=== PATIENT | female | born 1995 | race African-American/Black ===

== ENCOUNTER 2024-10-22 13:34 | Outpatient (REF) | payer MEDICAID, SELFPAY ==
--- OUTSIDE RECORDS SUMMARY | 2023-12-06 10:11 | XMS_ITS | Encounter Summary ---
Author Organization [facility] Address [address] [place] [address] Care Team Providers Care Residential Care Facility Manager Name Role Phone Braxton Pires Primary Care Provide r Encounter Details Date Type Department Care Team (Late st Contact Info) Description 12/06/2023 10:11 AM EDT Hospital Encounter TH HISTORIC ENCOUNTERS EASTERN CONVERSION ONLY Amanda Khalil PA [address] [place] [phone] Social History Tobacco Use Types Packs/Day Years Used Date Smoking Tobacco: Former Smokeless Tobacco: Never Alcohol Use Standard Drinks/Week Comments Not Currently 0 (1 standard drink = 0.6 oz pur e alcohol) Housing Instability Answer Date Recorde d Are you worried that in the next 2 months you may not have stable housing? No 01/29/2024 Food Access & Nutrition Answer Date Rec orded Do you have access to a vari ety of food including fruits and vegetables? Yes 01/29/2024 Access to Healthcare Answer Date Record ed Within the last 3 months, ho w many times did you visit the emergency department for your medical care? 1 01/29/2024 Health Literacy Answer Date Recorded How often do you need to hav e someone help you when you read instructions, pamphlets, or other written material from your doctor or pharmacy? Never 01/29/2024 Caregiver: How often do you need to have someone help you when you read instructions, pamphlets, or other written material from your doctor or pharmacy? Not on file 01/29/2024 Financial Risk Answer Date Recorded How hard is it for you to pa y for the very basics like food, housing, medical care, and air conditioning / heating? Very hard 01/29/2024 Transportation Answer Date Recorded Has the lack of transportati on kept you from meetings, work, or from getting things needed for daily living? No Has the lack of transportati on kept you from medical appointments or from getting medications? No 01/29/2024 Social Isolation Answer Date Recorded How often do you feel lonely or isolated from th ose around you? Never 01/29/2024 Food Risk Answer Date Recorded Within the past 12 months we worried whether our food would run out before we got money to buy more. Never true 01/29/2024 Within the past 12 months th e food we bought just didn't last and we didn't have money to get more. Never true 01/29/2024 Dependent Care Answer Date Recorded Do you need help finding or paying for care for your loved ones. For example, child nurse or elderly care for an older adult? Patient declined 01/29/2024 Education Answer Date Recorded Do you think completing more education or training, like finishing a GED, going to college, or learning a trade, would be helpful for you? Yes 01/29/2024 Employment and Income Answer Date Recor ded During the last four weeks, have you been actively looking for work? No 01/29/2024 Living Situation Answer Date Recorded What is your living situation? 1 03/31/2023 Comments No Sex and Gender Information Value Date Recorded Sex Assigned at Not on file Legal Sex Female 9:53 PM EST Gender Identity Not on file Sexual Orientation Not on file documented as of this encounter Last Filed Vital Signs Vital Sign Reading Time Taken Comments Blood Pressure 124/70 12/06/2023 11:08 AM EDT Sitting Right arm Pulse 112 12/06/2023 11:08 AM EDT Temperature - - Respiratory Rate - - Oxygen Saturation - - Inhaled Oxygen Concentration - - Weight 92.1 kg (203 lb) 12/06/2023 11:0 8 AM EDT Height 163.8 cm (5' 4.5 ) 12/06/2023 11 :08 AM EDT Body Mass Index 34.31 12/06/2023 11:08 AM EDT documented in this encounter Progress Notes * ANKUSH Norman - 12/06/2023 10:30 AM EDT Images from the original note were not included. Progress Notes by Amanda Khalil PA-C at 12/06/2023 10:30 AM Author: Amanda Khalil PA-C Service: -- Author Type: Physician Software Asset Management Analyst Filed: 12/06/2023 12:25 PM Encounter Date: 12/06/2023 Status: Signed Telephone Surveyor: Amanda Khalil PA-C (Physician Software Asset Management Analyst) Cosigner: Sage Martinez MD at 12/06/2023 5:43 PM Dear Lizzette Plasencia CNM, Thank you very much for referring this patient for consultation. HPI: 28-year-old -[place] female who was referred to our hematology clinic by [employer]ONT SERVICES AGENT team for further management of anemia during . She is accompanied by her boyfriend. She is 30 weeks . Her due date is February 10. She is expecting her first baby girl. She has been on vitamins and since early November she was started on iron supplementation as well. She denies any clinical bleeding or black stools. No family history of anemia. No previous history ofanemia prior to . She reports fatigue and sporadic lightheadedness. She denies headache, changes in vision, shortnessof breath, chest pain, palpitations, abnormal cravings. ROS: GENERAL: + malaise, significant weight loss or fever NECK: No lumps, goiter, pain or significant neck swelling RESPIRATORY: No cough, wheezing or shortness of breath CARDIOVASCULAR: No chest pain, leg swelling or palpitations GI: No abdominal discomfort, blood in stools or black stools MUSCULOSKELETAL: No joint pain or swelling, back pain, or muscle pain. HEMATOLOGY/LYMPHOLOGY No prolonged bleeding, easy bruisability or swollen nodes Other Systems review is non contributory PAST MEDICAL HISTORY: Active Ambulatory Problems Diagnosis Date Noted ? No Active Ambulatory Problems Resolved Ambulatory Problems Diagnosis Date Noted ? No Resolved Ambulatory Problems Past Medical History: Diagnosis Date ? Seizures (HCC) PAST SURGICAL HISTORY: History reviewed. No pertinent surgical history. SOCIAL HISTORY: Social History Tobacco Use ? Smoking status: Former Types: Cigarettes Quit date: 06/2023 Years since quittin.4 ? Smokeless tobacco: Never Substance Use Topics ? Alcohol use: Not Currently Quit smoking tobacco and weed due to . Typically drinks alcohol once or twice a month but not currently due to . She lives with her mother and her sister. She is currently not working. FAMILY HISTORY: History reviewed. No pertinent family history. Denies family history of anemia. MEDICATIONS: Current Outpatient Medications: ? Iron Glycinate 29 MG CAPS, Take by mouth., Disp: , Rfl: ? [id number]-[id number] (PRE- PO), Take by mouth., Disp: , Rfl: ? progesterone (PROMETRIUM) capsule 200 mg, Take 1 capsule (200 mg total) by mouth every night at bedtime., Disp: , Rfl: You are allergic to the following Date Reviewed: 12/06/2023 No active allergies PHYSICAL EXAM: BP 124/70 (BP Location: Right arm) Pulse 112 Temp 98.3 ??F (36.8 ??C) (Temporal) Ht 5' 4.5 (1.638 m) Wt 92.1 kg (203 lb) SpO2 100% BMI 34.31 kg/m?? APPEARANCE: Alert and in no acute distress EYES: PERRL, conjunctiva pink and sclera are Normal without icterus ORAL CAVITY: No erythema or exudates NECK: Neck supple, no adenopathy, HEART: RRR with normal S1 and S2, no murmurs, no gallops, no JVD appreciated LUNG: clear to auscultation bilaterally LYMPH NODES: No palpable superficial adenopathy ABDOMEN: , Bowel sounds normoactive, no bruits, soft, non-tender, without organomegaly or palpable masses EXTREMITIES: Extremities warm and well perfused without clubbing, cyanosis, rash or edema NEURO: Oriented X 3, no focal weakness; sensation is normal LABS: Testing: Review of Lab results , interpreted Review of External Documentation Tests ordered - CBCd, Iron/TIBC, Ferritin ASSESSMENT SNOMED CT(R) 1. Anemia in ANEMIA OF PLAN: KONSTANTIN in : -New condition -Third trimester -Due date: 02/11/2024 (Girl!) -Labs consistent with anemia; obtain iron studies -On oral iron supplementation since early November -Because IV iron has been shown to improve Hb more rapidly than oral iron, we preferentially treat patients with IV iron in the second half of -Published evidence reports that intravenous iron is safe and effective in the second and third trimesters of . Intravenous iron is the preferred route when the anemia is severe in the second trimester or at any time in the third trimester when there is little expectation that adequate quantities of iron will be delivered to the fetus as iron requirements increase in each trimester. -If her Hgb remains low if low iron levels, she may benefit from iron infusion. I will call her with results and we/ll make a decision. -If anemia is responding to oral iron, she may continued with it -Follow up as needed -Follow up with industrial hire sales assistant team for further management of Amanda Khalil PA-C Cc: Braxton Muniz MD Sign: Amanda Khalil PA-C Hematology/Oncology [facility] [phone] documented in this encounter Plan of Treatment Not on file documented as of this encounter Visit Diagnoses Not on filedocumented in this encounter Care Teams Residential Care Facility Manager Relationship Specialty Start Date End Date Braxton Pires [address] [place] [address] PCP - General 11/24/23 documented as of this encounter
--- OUTSIDE RECORDS SUMMARY | 2023-12-06 10:30 | XMS_ITS | Encounter Summary ---
Author Organization [facility] Address [address] [place] [address] Care Team Providers Care Fountain Manager Name Role Phone Braxton Pires Primary Care Provide r Encounter Details Date Type Department Care Team (Late st Contact Info) Description 12/06/2023 10:30 AM EDT Hospital Encounter TH HISTORIC ENCOUNTERS EASTERN CONVERSION ONLY Amanda Khalil PA [address] [place] [phone] Social History Tobacco Use Types Packs/Day Years [...] for your loved ones. For example, child development associate teacher or elderly care for an older adult? [...] on file documented as of this encounter Plan of Treatment Not on file documented as of this encounter Visit Diagnoses Not on filedocumented in this encounter Care Teams Fountain Manager Relationship Specialty Start Date End Date Braxton Pires [address] [place], [place] PCP - General 11/24/23 documented as of this encounter
--- OUTSIDE RECORDS SUMMARY | 2024-10-22 08:45 | XMS_ITS | Encounter Summary ---
Author Organization [employer] Address [address] [facility] [address] [place] [address] Care Team Providers Care Betting Clerks Name Role Phone Braxton Pires MD Primary Care Prov ider Reason for Referral * Consultation (Routine) - Pending Review Specialty Diagnoses / Procedures Referred By Destiney beasley Referred To Contact Nutrition Diagnoses Weight gain Braxton Pires MD [address] [place] [phone] Phone: tel: fax: Referral ID Status Reason Start Date Expiration Date Visits Requested Visits Authorized [id number] Pending Review Specialty Services Required 10/22/2024 10/22/2025 1 1 Encounter Details Date Type Department Care Team ([facility] st Contact Info) Description 10/22/2024 8:45 AM EDT Telemedicine [facility] MED & PEDS [address] [place] [address] Braxton Pires MD [address] [place], [place] [phone] Weight gain (Primary Dx) Social History Tobacco Use Types Packs/Day Years Used Date Smoking Tobacco: Never Smokeless Tobacco: Never Alcohol Use Standard Drinks/Week Comments Never 0 (1 standard drink = 0.6 oz pur e alcohol) Depression Answer Date Recorded Patient Health Questionnaire-9 Score 0 10/22/2024 Patient Health Questionnaire-9 Score 0 10/22/2024 Last PHQ-9: Questionnaire Data Not on file 0 10/22/2024 Housing Stability Answer Date Recorded What is your housing situation today? I have leigha menchaca 08/23/[address] you li ve. Do you have problems with any of the following? None of the above 08/23/2023 Food Insecurity Answer Date Recorded Within the past 12 months, y ou worried that your food would run out before you got money to buy more: Never True 08/23/2023 Within the past 12 months,th e food you bought just didn't last and you didn't have enough money to get more: Never True Transportation Answer Date Recorded In the past 12 months, has l ack of transportation kept you from medical appts, meetings, work or from getting things needed for daily living? Yes, it has kept me from medical appointments or getting medications. 11/15/2023 Utilities Answer Date Recorded In the past 12 months, has t he electric, gas, oil or water company threatened to shut off services in your home? No 08/23/2023 Depression Answer Date Recorded Patient Health Questionnaire-2 Score 0 10/22/2024 Internet Access Answer Date Recorded Internet Access Q1 Yes 10/10/2023 Internet Access Q2 Not on file 10/10/2023 Comments No Sex and Gender Information Value Date Recorded Sex Assigned at Female 06/24/2023 2:07 PM EDT Legal Sex Female 2:07 PM EDT Gender Identity Female 08/22/2023 10:40 AM EDT Sexual Orientation Don't know 08/22/2023 10 :40 AM EDT documented as of this encounter Functional Status * Over the past 2 weeks, how often have you been bothered by any of the following problems? Question Answer Date of Assessment Author Patient Health Questionnaire-2 Score 0 10/08 8:43 AM EDT Aileen Ramirez MA * Little interest or pleasure in doing things Answer Date of Assessment Author Not at all 10/22/2024 8:43 AM SUDHIRT Josefina Ramirez MA * Feeling down, depressed, or hopeless Answer Date of Assessment Author Not at all 10/22/2024 8:43 AM EDT Josefina aRmirez MA * Trouble falling or staying asleep, or sleeping too much Answer Date of Assessment Author Not at all 10/22/2024 8:43 AM Josefina Ricardo MA * Feeling tired or having little energy Answer Date of Assessment Author Not at all 10/22/2024 8:43 AM Josefina Ricardo MA * Poor appetite or overeating Answer Date of Assessment Author Not at all 10/22/2024 8:43 AM Josefina Ricardo MA * Feeling bad about yourself - or that you are a failure or have let yourself or your family down Answer Date of Assessment Author Not at all 10/22/2024 8:43 AM Josefina Ricardo MA * Trouble concentrating on things, such as reading the newspaper or watching television Answer Date of Assessment Author Not at all 10/22/2024 8:43 AM Josefina Ricardo MA * Moving or speaking so slowly that other people could have noticed? Or the opposite - being so fidgety or restless that you have been moving around a lot more than usual. Answer Date of Assessment Author Not at all 10/22/2024 8:43 AM Josefina Ricardo MA * Thoughts that you would be better off or hurting yourself in some way Answer Date of Assessment Author Not at all 10/22/2024 8:43 AM Josefina Ricardo MA * Patient Health Questionnaire-9 Score Answer Date of Assessment Author 0 10/22/2024 8:43 AM Josefina Ricardo MA documented as of this encounter Progress Notes * Braxton Garg MD - 10/22/2024 8:45 AM EDT Subjective Patient ID: Sergo Proctor is a 28 y.o. female who presents for No chief complaint on file.. HPI Patient was scheduled for a televisit to discuss weight management Review of Systems Constitutional: Negative for chills, fatigue and fever. Respiratory: Negative for cough and shortness of breath. Cardiovascular: Negative for chest pain and palpitations. Objective Physical Exam Neurological: General: No focal deficit present. Mental Status: She is oriented to person, place, and time. Psychiatric: Mood and Affect: Mood normal. Behavior: Behavior normal. Assessment/Plan Problem List Items Addressed This Visit Weight gain - Primary Patient has tried cutting calories, has been exercising, requesting medical device sales evaluation, will place referral and will order blood work to evaluate for possible secondary causes, follow up in 4 months Relevant Orders TSH W/Reflex to FT4 Hemoglobin A1c Comprehensive Metabolic Panel Referral to Nutrition Services documented in this encounter Miscellaneous Notes * Assessment & Plan Note - Braxton Garg MD - 10/22/2024 9:15 AM EDTAssociated Problem(s): Weight gain Patient has tried cutting calories, has been exercising, requesting medical device sales evaluation, will place referral and will order blood work to evaluate for possible secondary causes, follow up in 4 months documented in this encounter Plan of Treatment Upcoming Encounters Date Type Department Care Team (Late st Contact Info) Description 11/23/2024 2:30 PM EDT Clinical Support [facility] DIABETES/NUTRITION [address] [place] [address] [place] [address] Scheduled Referrals Name Type Priority Associated Diagnoses Orde r Schedule Referral to Nutrition Services Outpatient Referral Routine Weight gain Expected: 10/22/2024 (Approximate), Expires: 10/22/2025 documented as of this encounter Procedures Procedure Name Priority Date/Time Associated Diagnosis Comments TSH W/REFLEX TO FT4 Routine 10/22/2024 1 :38 PM EDT Weight gain HEMOGLOBIN A1C Routine 10/22/2024 1:38 PM EDT Weight gain COMPREHENSIVE METABOLIC PANEL Routine 10/22/2024 1:38 PM EDT Weight gain documented in this encounter Results * (ABNORMAL) Comprehensive Metabolic Panel (10/22/2024 1:38 PM EDT) Sodium 142 135 - 145 mmol/L [facility] Potassium 3.7 3.3 - 5.1 mmol/L [facility] Chloride 108 96 - 108 mmol/L [facility] Carbon Dioxide 27 22 - 29 mmol/L [facility] Anion Gap 11(L) 12 - 20 [facility] Urea Nitrogen (BUN) 10 9 - 16 mg/dL [facility] Creatinine, Serum 0.65 0.5 - 1.4 mg/dL [facility] Estimated Glomerular Filt Rate >60 [facility] Comment:Chronic Kidney Disea se: Estimated GFR < 60 mL/min/[id number] Kidney Disease: Estimated GFR < 15 mL/min/1.73m2 Glucose 72 60 - 115 mg/dL [facility] Calcium 8.9 8.4 - 10.2 mg/dL [facility] Bilirubin, Total 0.2 0.0 - 1.0 mg/dL [facility] Aspartate Amino Transferase 21 5 - 31 U/L [facility] Alanine Aminotransferase 16 0 - 31 U/L [facility] Total Protein 7.4 6.5 - 8.0 g/dL [facility] Albumin Level 4.4 3.5 - 5.0 g/dL [facility] Alkaline Phosphatase 69 39 - 117 U/L [facility] Blood Venous blood specimen / Unknown 10/22/2024 1:38 PM EDT 10/22/2024 2:00 PM EDT us Braxton Garg MD LAB BLOOD ORDERABL ES Final Result [facility] [address] [place] [phone] * Hemoglobin A1c (10/22/2024 1:38 PM EDT) Hemoglobin A1c 5.6 <6.0 % [facility] Comment:Hemoglobin A1C Refer ence Range Adults: 4.8 - 6.0 % Non diabetic: < 6.0 % Goal: < 7.0 %Additional Action Suggested: > 8.0 %Note: Hemoglobin A1c results are invalid for patients with abnormal amounts of HbF. Blood transfusions may impact the HbA1c concentration in the patient sample. Estimated Average Glucose 114 mg/dL [facility] Comment:eAG = Estimated ave rage glucose which is %A1C expressed asaverage glucose, using the formula of the [id number]-[id number] Glucose study (ADAG), Diabetes Care, Vol.31,#8,Sep. 2007 Blood Venous blood specimen / Unknown 10/22/2024 1:38 PM EDT 10/22/2024 2:00 PM EDT us Braxton Garg MD LAB BLOOD ORDERABL ES Final Result Performing Organization Address [facility] Co de Phone Number [facility] [address] [place] [phone] * TSH W/Reflex to FT4 (10/22/2024 1:38 PM EDT) TSH reflex Free T4 1.41 0.32 - 4.0 uIU/mL [facility] Blood Venous blood specimen / Unknown 10/22/2024 1:38 PM EDT 10/22/2024 2:00 PM EDT us Braxton Garg MD LAB BLOOD ORDERABL ES Final Result Performing Organization Address [facility] Co de Phone Number [facility] [address] [place] [phone] documented in this encounter Visit Diagnoses Diagnosis Weight gain- Primary Other symptoms concerning nutrition, metabolism, and development documented in this encounter Additional Health Concerns Assessment Noted Time PHQ-9 Depression Total Score: 0 10/23/19 25 8:43 AM EDT documented as of this encounter Care Teams Betting Clerks Relationship Specialty Start Date End Date Braxton Pires MD [address] [place] [phone] PCP - General Internal Medicine 08/23/23 Jennie Otero Office Machine Servicer Apprentice 11/18/23 documented as of this encounter
[2024-10-22 14:34] LABS: Hemoglobin A1C 115.3574 umol/L; Total Hemoglobin (HGBA1C) 3083.8755 umol/L
[2024-10-22 14:55] LABS: Alanine Aminotransferase 16 U/L (0-31); Albumin Level 4.4 g/dL (3.5-5.0); Alkaline Phosphatase 69 U/L (39-117); Anion Gap 11 (12-20); Aspartate Amino Transferase 21 U/L (5-31); Blood Urea Nitrogen 10 mg/dL (9-16); Calcium 8.9 mg/dL (8.4-10.2); Carbon Dioxide 27 mmol/L (22-29); Chloride 108 mmol/L (96-108); Estimated Glomerular Filt Rate > 60; Potassium 3.7 mmol/L (3.3-5.1); Sodium 142 mmol/L (135-145); Total Protein 7.4 g/dL (6.5-8.0)
--- OUTSIDE RECORDS SUMMARY | 2024-10-22 18:51 | XMS_ITS | Encounter Summary ---
Author Organization [employer] Address [address] [place] [address] Care Team Providers Care Sterile Products Processor Name Role Phone Braxton Pires MD Primary Care Prov ider Encounter Details Date Type Department Care Team (Latest Contact Info) Description 10/22/2024 Travel Social History Tobacco Use Types Packs/Day Years [...] Health Questionnaire-2 Score 0 10/08 8:43 AM Aileen Ricardo MA * Little interest or pleasure in doing things Answer Date of Assessment Author Not at all 10/22/2024 8:43 AM Josefina Ricardo MA * Feeling down, depressed, or hopeless Answer Date of Assessment Author Not at all 10/22/2024 8:43 AM Josefina Ricardo MA * Trouble falling or staying asleep, [...] at all 10/22/2024 8:43 AM EDT Josefina Ramirez MA * Thoughts that you would be better off or hurting yourself in some way Answer Date of Assessment Author Not at all 10/22/2024 8:43 AM EDT Josefina Ramirez MA * Patient Health Questionnaire-9 Score Answer Date of Assessment Author 0 10/22/2024 8:43 AM EDT Josefina Ramirez MA documented as of this encounter Plan of Treatment Upcoming Encounters Date Type Department Care Team (Late st Contact Info) Description 11/23/2024 2:30 PM EDT Clinical Support [facility] DIABETES/NUTRITION [address] [place] [address] [place] [address] documented as of this encounter Visit Diagnoses Not on filedocumented in this encounter Additional Health Concerns Assessment Noted Time PHQ-9 Depression Total Score: 0 10/23/19 25 8:43 AM EDT documented as of this encounter Care Teams Sterile Products Processor Relationship Specialty Start Date End Date Braxton Pires MD [address] [place] [phone] PCP - General Internal Medicine 08/23/23 Jennie Otero Channel Rougher 11/18/23 documented as of this encounter
--- OUTSIDE RECORDS SUMMARY | 2024-10-22 18:51 | XMS_ITS | Clinical Summary ---
Author Organization [facility] Address [address] [place] [address] Care Team Providers Care Knifeman Name Role Phone Braxton Muniz MD Primary Care Provider [phone] Allergies No known active allergies Medications Medication Sig Dispensed Refills Start Date End Date Status progesterone (PROMETRIUM) capsule 200 mg Take 1 capsule (200 mg total) by mouth every night at bedtime. 0 Active Iron Glycinate 29 MG CAPS Take by mouth. 0 Active Migimkyv-Fgi-Cb-FA (PRE-MICHAEL PO) Take by mouth. 0 Active Social History Tobacco Use Types Packs/Day Years Used Date Smoking Tobacco: Former Cigarettes Q uit: 06/2023 Smokeless Tobacco: Never Alcohol Use Standard Drinks/Week Comments Not Currently 0 (1 standard drink = 0.6 oz pur e alcohol) Sex and Gender Information Value Date Recorded Sex Assigned at Not on file Gender Identity Not on file Sexual Orientation Not on file Job Start Date Occupation Industry Not on file Not on file Not on file Last Filed Vital Signs Vital Sign Reading Time Taken Comments Blood Pressure 124/70 12/06/2023 11:08 AM EDT Pulse 112 12/06/2023 11:08 AM EDT Temperature 36.8 C (98.3 F) 12/06/2023 11:08 AM EDT Respiratory Rate - - Oxygen Saturation 100% 12/06/2023 11:08 AM EDT Inhaled Oxygen Concentration - - Weight 92.1 kg (203 lb) 12/06/2023 11:08 AM EDT Height 163.8 cm (5' 4.5 ) 12/06/2023 11:08 AM ED T Body Mass Index 34.31 12/06/2023 11:08 AM EDT Plan of Treatment Health Maintenance Due Date Last Done Comments Hepatitis B Vaccines (1 of 3 - 3-dose series) 1994 Hepatitis C Screening 1994 COVID-19 Vaccine (#1) 05/22/1995 Depression Screening 2006 Preventative Health Evaluation 2012 Cervical Cancer Screening (P ap Smear) 11/21/2015 Influenza Vaccine (#1) 2024 DTap / Tdap / Td (2 - Td or Tdap) 11/23/2033 024 Pneumococcal Vaccine Aged Out No long er eligible based on patient's age to complete this topic RSV Ped < 20 months Aged Out No longe r eligible based on patient's age to complete this topic Guarantor Name Account Type Relation to Patient Date of Phone Billing Address Sergo Proctor Personal/Family Self 1995 [address] [place] [id number] Care Teams Knifeman Relationship Specialty Start Date End Date Braxton Muniz MD [address] [facility] [place] [phone] PCP - General Internal Medicine 11/24/23
--- OUTSIDE RECORDS SUMMARY | 2024-10-22 18:51 | XMS_ITS | Clinical Summary ---
Author Organization [employer] Address [address] [place] [address] Care Team Providers Care Fruit Harvester Name Role Phone Braxton Pires MD Primary Care Prov ider Allergies Active Allergy Reactions Criticality Noted Date Comments Latex Hives 08/23/2023 Medications * This document contains information received from the source organization and may not represent a complete record from that organization. Vit-Fe Fumarate-FA (WesTab Plus) 27-1 MG tablet Take 1 tablet by mouth Once per day. 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 Status post delivery at term 05/03/2024 Assessment & Plan (05/03/2024 3:34 PM EDT): Patient had a vaginal delivery on 01/29/24, no complications, she is , continue with vitamins, no sign/symptoms of depression Panic disorder 01/23/2024 Depression, unspecified 12/30/2023 Iron deficiency anemia secon minnie to inadequate dietary iron intake 12/22/2023 Assessment & Plan (05/03/2024 3:35 PM EDT): Last cbc done on 01/30/24 was stable, continue vitamin, no sign of fatigue, follow up as needed+ Assessment & Plan (12/22/2023 6:44 PM EST): Patient did not tolerated oral replacement, will start iv iron replacement Encounter for medical examination to establish c are 08/23/2023 Assessment & Plan (08/23/2023 2:18 PM EDT): Last pcp visit was on 2016 No er visit in the past year No hospitalizations Pmh:- Pshx: - All: latex Meds: vitamin Patient is 13 weeks , her first , followed by [facility] 32 weeks gestation of 08/23/2023 Assessment & Plan (12/22/2023 6:43 PM EST): Followed by [facility], no complications during , will follow up in 3-4 months Assessment & Plan (08/23/2023 2:19 PM EDT): No complications so far, on multivitamin, followed by [facility] Encounters * This document contains information received from the source organization and may not represent a complete record from that organization. Date Type Department Care Team Description 10/22/2024 8:45 AM EDT Telemedicine [facility] [address] [place] [address] Braxton Pires MD Weight gain (Primary Dx) 10/22/2024 Travel 10/19/2024 Telephone [facility] [address] [place] [address] Braxton Pires MD Chart prep 10/19/[address] [address] Braxton Pires MD Lab Orders 09/26/[address] [address] Braxton Pires MD Care Management ([facility] TC #[id number]) 09/10/2024 Travel 09/03/[address] [place] [address] Braxton Pires MD Care Management ([facility] follow up call) 08/27/2024 Travel 08/08/2024 Telephone [facility] [address] [facility] [place] [address] Braxton Pires MD Care Management ([facility] follow up call) from Last 3 Months Immunizations Immunization Administration Dates Next Due PPD Test 10/06/2018 Tdap 11/24/2023 Family History Medical History Relation Name Comments Heart disease Father BEAR disease Mother Anxiety disorder Sister Relation Name Status Comments Father Mother Sister Social History Tobacco Use Types Packs/Day Years Used Date Smoking Tobacco: Never Smokeless Tobacco: Never Tobacco Cessation:Counseling Given: Not Answered Alcohol Use Standard Drinks/Week Comments Never 0 [...] Don't know 08/22/2023 10 :40 AM EDT Last Filed Vital Signs Vital Sign Reading Time Taken Comments Blood Pressure 132/78 12/22/2023 10:32 AM EST Pulse 76 12/22/2023 10:32 AM EST Temperature 36.4 C (97.5 F) 12/22/2023 10:32 AM EST Respiratory Rate 20 12/22/2023 10:32 AM EST Oxygen Saturation - - Inhaled Oxygen Concentration - - Weight 91.6 kg (202 lb) 12/22/2023 10:32 AM EST Height 162.6 cm (5' 4 ) 12/22/2023 10:32 AM EST Body Mass Index 34.67 12/22/2023 10:32 AM EST Plan of Treatment Upcoming Encounters Date Type Department Care Team (Late st Contact Info) Description 11/23/2024 2:30 PM EDT Clinical Support [facility] DIABETES/NUTRITION [address] [place] [address] [place] [address] Health Maintenance Due Date Last Done Comments HIV Screening 1994 Family Planning (PISQ) 2009 HPV Vaccines (1 - 3-dose series) 2009 Hepatitis C Screening 2012 Hepatitis B Vaccines (1 of 3 - 19+ 3-dose series) 2013 COVID-19 Vaccine ( - 2023-2 5 season) 2024 Influenza Vaccine (#1) 2024 SDOH Screening 11/14/2024 11/15/2023 Tobacco Screening 02/19/2025 02/20/2024 Alcohol/Substance Use Screening 10/22/2025 10/22/2024 Depression Screening 10/22/2025 10/22/2024, 10/22/2024 Disability Screening 10/22/2025 10/22/2024 Pap Smear 08/15/2026 08/16/2023 DTaP/Tdap/Td Vaccines (2 - T d or Tdap) 11/23/2033 11/24/2023 Zoster Vaccines (1 of 2) 2044 RSV Patients and Patients Aged 60 years or older (1 - 1-dose 75+ series) 2069 HIB Vaccines Aged Out No longer eligi ble based on patient's age to complete this topic Hepatitis A Vaccines Aged Out No long er eligible based on patient's age to complete this topic IPV Vaccines Aged Out No longer eligi ble based on patient's age to complete this topic Meningococcal B Vaccine Aged Out No l onger eligible based on patient's age to complete this topic Meningococcal Vaccine Aged Out No alyce bear eligible based on patient's age to complete this topic Pneumococcal Vaccine: Pediatrics (0 to 5 Years) and At-Risk Patients (6 to 49) Years Aged Out No longer eligible b ased on patient's age to complete this topic RSV under 20 months Aged Out No longe r eligible based on patient's age to complete this topic Rotavirus Vaccines Aged Out No longer eligible based on patient's age to complete this topic Procedures Procedure Name Priority Date/Time Associated Diagnosis Comments COMPREHENSIVE METABOLIC PANEL Routine 10/22/2024 1:38 PM EDT Weight gain HEMOGLOBIN A1C Routine 10/22/2024 1:38 PM EDT Weight gain TSH W/REFLEX TO FT4 Routine 10/22/2024 1 :38 PM EDT Weight gain HM PAP/HPV Routine 08/16/2023 12:00 AM EDT from Last 3 Months or Most Recently Relevant to Health Maintenance Results * TSH W/Reflex to FT4 (10/22/2024 1:38 PM EDT) TSH reflex Free T4 1.41 0.32 - 4.0 uIU/mL [facility] Blood Venous blood specimen / Unknown 10/22/2024 1:38 PM EDT 10/22/2024 2:00 PM EDT Braxton Garg MD LAB BLOOD ORDERABL ES Final Result Performing Organization Address [facility] Co de Phone Number [facility] [address] [place] [address] [phone] * Hemoglobin A1c (10/22/2024 1:38 PM EDT) Hemoglobin A1c 5.6 <6.0 % [facility] Comment:Hemoglobin A1C Refer ence Range Adults: 4.8 - 6.0 % Non diabetic: < 6.0 % Goal: < 7.0 %Additional Action Suggested: > 8.0 %Note: Hemoglobin A1c results are invalid for patients with abnormal amounts of HbF. Blood transfusions may impact the HbA1c concentration in the patient sample. Estimated Average Glucose 114 mg/dL [facility] Comment:eAG = Estimated ave rage glucose which is %A1C expressed asaverage glucose, using the formula of the P0L-SsjmkpsHimqaik Glucose study (ADAG), Diabetes Care, Vol.31,#8,2007 Blood Venous blood specimen / Unknown 10/22/2024 1:38 PM EDT 10/22/2024 2:00 PM EDT Braxton Garg MD LAB BLOOD ORDERABL ES Final Result Performing Organization Address [facility] Co de Phone Number [facility] [address] [place] [address] [phone] * (ABNORMAL) Comprehensive Metabolic Panel (10/22/2024 1:38 PM EDT) Sodium 142 135 - 145 mmol/L [facility] Potassium 3.7 3.3 - 5.1 mmol/L [facility] Chloride 108 96 - 108 mmol/L [facility] Carbon Dioxide 27 22 - 29 mmol/L [facility] Anion Gap 11(L) 12 - 20 [facility] Urea Nitrogen (BUN) 10 9 - 16 mg/dL [facility] Creatinine, Serum 0.65 0.5 - 1.4 mg/dL [facility] Estimated Glomerular Filt Rate >60 [facility] Comment:Chronic Kidney Disea se: Estimated GFR < 60 mL/min/[id number] Kidney Disease: Estimated GFR < 15 mL/min/1.73m2 Glucose 72 60 - 115 mg/dL [facility] Calcium 8.9 8.4 - 10.2 mg/dL [facility] Bilirubin, Total 0.2 0.0 - 1.0 mg/dL [facility] Aspartate Amino Transferase 21 5 - 31 U/L [facility] Alanine Aminotransferase 16 0 - 31 U/L [facility] Total Protein 7.4 6.5 - 8.0 g/dL [facility] Albumin Level 4.4 3.5 - 5.0 g/dL [facility] Alkaline Phosphatase 69 39 - 117 U/L [facility] Blood Venous blood specimen / Unknown 10/22/2024 1:38 PM EDT 10/22/2024 2:00 PM EDT Braxton Garg MD LAB BLOOD ORDERABL ES Final Result [facility] [address] [place] [address] [phone] * PAP/HPV (08/16/2023 12:00 AM EDT) Pap Smear 1. NILM 1. NILM Historical Provider HEALTH MAINTENANCE Edited Result - Final from Last 3 Months or Most Recently Relevant to Health Maintenance Insurance [facility] C3 Care Teams Fruit Harvester Relationship Specialty Start Date End Date Braxton Pires MD [address] [place] [phone] PCP - General Internal Medicine 08/23/23 Jennie Otero Terminal Operations Manager 11/18/23
--- OUTSIDE RECORDS SUMMARY | 2024-10-22 18:51 | XMS_ITS | Encounter Summary ---
Author Organization [employer] Address [address] [facility] [address] [place] [address] Care Team Providers Care Lead Data Entry Operator Name Role Phone Braxton Pires MD Primary Care Prov ider Reason for Visit * Reason Onset Date Comments Lab Orders 10/19/2024 Encounter Details Date Type Department Care Team ([facility] Contact Info) Description 10/19/2024 Telephone [facility] [address] [place] [address] Braxton Pires MD [address] [place], [place] [phone] Lab Orders Social History Tobacco Use Types Packs/Day Years Used Date Smoking Tobacco: Never Smokeless Tobacco: Never Alcohol Use Standard Drinks/Week Comments Never 0 (1 standard drink = 0.6 oz pur e alcohol) Depression Answer Date Recorded Patient Health Questionnaire-9 Score 0 08/23/2023 Patient Health Questionnaire-9 Score 0 08/23/2023 Last PHQ-9: Questionnaire Data Not on file 0 08/23/2023 Housing Stability Answer Date Recorded What is [...] Date Recorded Patient Health Questionnaire-2 Score 0 08/23/2023 Internet Access Answer Date Recorded Internet Access Q1 Yes 10/10/2023 Internet Access Q2 Not on file 10/10/2023 Comments No Sex and Gender Information Value Date Recorded Sex Assigned at Female 06/24/2023 2:07 PM EDT Legal Sex Female 2:07 PM EDT Gender Identity Female 08/22/2023 10:40 AM EDT Sexual Orientation Don't know 08/22/2023 10 :40 AM EDT documented as of this encounter Miscellaneous Notes * Telephone Encounter - Estelle Dozier RN - 10/19/2024 1:11 PM EDT TC placed to patient [phone] who reports she needs a Tspot order for her employer. Patient reports she has not had a previous positive TB screen. Patient advised BW order has been placed and patient can complete the BW at her convenience. Patient to f/u PRN. * Telephone Encounter - Jocy Montes - 10/19/2024 12:42 PM EDT Tc from pt requesting an order for TB test for work Contact pt at [phone] documented in this encounter Plan of Treatment Upcoming Encounters Date Type Department Care Team (Late st Contact Info) Description 11/23/2024 2:30 PM EDT Clinical Support [facility] DIABETES/NUTRITION [address] [place] [address] [place], [place] [phone] Scheduled Orders Name Type Priority Associated Diagnoses Orde r Schedule T-SPOT .TB Lab Routine Encounter for screening for respiratory tuberculosis Expected: 10/19/2024 (Approximate), Expires: 10/19/2025 documented as of this encounter Visit Diagnoses Diagnosis Encounter for screening for respiratory tuberculosis documented in this encounter Additional Health Concerns Assessment Noted Time PHQ-9 Depression Total Score: 0 08/23/19 24 1:46 PM EDT documented as of this encounter Care Teams Lead Data Entry Operator Relationship Specialty Start Date End Date Braxton Pires MD [address] [place] [phone] PCP - General Internal Medicine 08/23/23 Jennie Otero Manager Content 11/18/23 documented as of this encounter
--- OUTSIDE RECORDS SUMMARY | 2024-10-22 18:52 | XMS_ITS | Clinical Summary ---
Author Organization [facility] Address [address] [place] [address] Care Team Providers Care Head Grinder Name Role Phone Braxton Pires Primary Care Provide r Allergies Active Allergy Reactions Criticality Noted Date Comments Latex Hives,Rash High 08/09/2023 Rash/Dermatitis Latex gloves and condoms (takes antihistamine to clear up rash - states benadryl does not work) Medications norethindrone (EDUAR,RIGOBERTO,HE ATHER,MICRONOR) 0.35 mg tablet Take 1 tablet (0.35 mg total) by mouth 1 (one) time each day. 28 tablet 11 03/13/2024 Active WesTab Plus 27 mg iron- 1 mg tablet TAKE ONE TABLET DAILY 30 tablet 11 08/16/2024 Active Active Problems Problem Noted Date Diagnosed Date state 01/29/2024 Vaginal delivery 01/29/2024 GBS (group B Streptococcus c arrier), +RV culture, currently 01/25/2024 Overview (01/25/2024): 01/17/24 +GBS treat in labor Anemia in , third trimester 12/21/2023 Encounter for supervision of normal first in first trimester 12/19/2023 Overview (01/25/2024): 1. [facility] site: [address] 2. Delivery site: [facility] 3. Mobile Mommas: 4. Dating criteria: LMP only 5. Blood type: A+ 6. Genetic screening: Date: Result: Panorama: 08/09/23 low risk girl (do not tell pt gender, she does not want to know until her birthday in Nov) Horizon: 08/08 Neg Nuchal: 08/10/23 at 1:30pm (arrive 1pm) - unable to do as CRL exceeds cutoff to do testing Survey: at 10am MSAFP: 6. GBS: Date: 01/17/24 Positive 7. FOB name: Josr Long, 8. Plans A. Epidural or other pain management - B. Labor support identified - Josr and her mom C. Tdap - Date:, Flu - Date: D. Breast or Bottle feed: breast E. Baby's name -girl F. Circumcision - n/a 9. Hospital Course: History of marijuana use 11/10/2023 Overview (12/19/2023): UDS ordered at intake - Positive MJ 08/09/23 Urinary tract infection in m other during first trimester of 11/10/2023 Overview (12/19/2023): Keflex sent 08/09 Short cervix during in second trimeste r 11/10/2023 Overview (12/19/2023): 09/29/2023, cervix closed, GC/CT and wet prep obtained, PV progesterone 200mg nightly until 36 weeks per MFM, has f/u cervical length in one week 1.9 Overweight 11/10/2023 Overview (12/19/2023): Pre-preg BMI 29.95 - recommended weight gain 15-25lb 08/09/23 HgbA1c 5.0 Surgical History Surgery Date Site/Laterality Comments OTHER SURGICAL HISTORY PROCEDURE: DENIES PREVIOUS SURGERY Medical History Medical History Date Comments Patient denies medical problems DX:Patient denies medical problems Anxiety disorder DX:Anxiety diso rder; COMMENT: not officially diagnosed History of seizures as a child D X:History of seizures as a child; COMMENT: no issues since then Family History Medical History Relation Name Comments Dementia Aunt 1 maternal Diabetes Aunt 1 maternal left BKA Heart attack Aunt 1 maternal heart surgery Stroke Aunt 1 maternal x 6 Kidney failure Aunt 2 paternal aunt hemodialysis Brain Aneurysm Aunt 3 maternal Other: heart murmur Father (later o nset) Diabetes Father's side 1 Heart attack Father's side 1 Other: tachycardia Father's side 1 Kidney failure Father's side 2 Jacob dialysis p aternal cousin Brain Aneurysm Father's side 3 paternal c ousin Heart attack Maternal Grandfather Cataracts Maternal Grandmother bilater al (had surgery on one and now blind in that eye) MARKOS disease Mother Hyperlipidemia Mother Bipolar disorder Mother's side 1 2 cousin Schizophrenia Mother's side 2 1st cousin once removed Other: gunshot Paternal Grandfather Diabetes Paternal Grandmother Hyperlipidemia Paternal Grandmother No Known Problems Sister Stroke Uncle 1 Al paternal uncle Cirrhosis Uncle 2 paternal uncle Breast cancer Neg Hx Cervical cancer Neg Hx Colon cancer Neg Hx Esophageal cancer Neg Hx Ovarian cancer Neg Hx Pancreatic cancer Neg Hx Prostate cancer Neg Hx Uterine cancer Neg Hx Relation Name Status Comments Aunt 1 maternal Alive Aunt 2 paternal aunt Aunt 3 maternal Father Alive Father's side 1 Alive Father's side 2 Jacob Alive Father's side 3 Maternal Grandfather Maternal Grandmother Alive Mother Alive Mother's side 1 Alive Mother's side 2 Alive Paternal Grandfather Paternal Grandmother Sister Alive Uncle 1 Al Alive Uncle 2 Alive Social History Tobacco Use Types Packs/Day Years [...] Record ed Within the last 3 months, raul mariano many times did you visit the emergency [...] care for your loved ones. For example, children's tutor nursery or elderly care for an older adult? [...] on file Sexual Orientation Not on file Obstetrics History Para Term AB IAB SAB Ectopic Multiple Livin g Live Births 1 1 1 0 0 0 1 1 Date Outcome GA Total Labor Labor/2nd/3rd Weight Sex Type Anes PTL Lora A1 A5 Name Clin 024 Term 38w 1d 2h 12m 2h 05m/0h 01m/0h 06m 2840 g (100.2 oz) F Vag-S pont None Livin g 8 9 Uli't ure Beulah Lague r-lop ez Meredi th Merissa Singh MD Complications:None Delivery Location:[facility] Comments 01/29/24 arrived via ambulan ce, delivered precipitously in ED with ER physician. Placenta delivered by Ari FLANAGAN. Last Filed Vital Signs Vital Sign Reading Time Taken Comments Blood Pressure 130/82 03/13/2024 10:58 AM EST Pulse 90 01/30/2024 8:00 AM EST Temperature 37.1 C (98.7 F) 01/30/2024 8:00 AM EST Respiratory Rate 16 01/30/2024 8:00 AM EST Oxygen Saturation 99% 01/29/2024 3:12 PM EST Inhaled Oxygen Concentration - - Weight 90.3 kg (199 lb) 03/13/2024 10:58 AM EST Height 163.8 cm (5' 4.5 ) 12/06/2023 11:08 AM ED T Body Mass Index 33.63 12/06/2023 11:08 AM EDT Plan of Treatment Health Maintenance Due Date Last Done Comments Hepatitis B Vaccines (1 of 3 - 19+ 3-dose series) 2013 HIV Screening 08/30/2023 Depression Screening 02/08/2024 01/12/2024 COVID-19 Vaccine ( - 2023-2 5 season) 2024 Influenza Vaccine (#1) 2024 Social Influencers of Health Screening 01/28/2025 01/29/2024 Cervical Cancer Screening: P ap Smear 08/15/2026 08/16/2023, 08/16/2023, 08/16/2023 DTaP,Tdap,and Td Vaccines (2 - Td or Tdap) 11/23/2033 11/24/2023 Hepatitis C Screening Completed 08/09/2023 HIB Vaccines Aged Out No longer eligi ble based on patient's age to complete this topic HPV Vaccines Aged Out No longer eligi ble based on patient's age to complete this topic Hepatitis A Vaccines Aged Out No long er eligible based on patient's age to complete this topic IPV Vaccines Aged Out No longer eligi ble based on patient's age to complete this topic MMR Vaccines Aged Out No longer eligi ble based on patient's age to complete this topic Meningococcal ACWY Vaccine Aged Out N o longer eligible based on patient's age to complete this topic Meningococcal B Vaccine Aged Out No l onger eligible based on patient's age to complete this topic Pneumococcal Vaccine: Pediatrics (0 to 5 Years) and At-Risk Patients (6 to 49 Years) Aged Out No longer eligible b ased on patient's age to complete this topic RSV Immunization Patients Under 20 months Aged Out No longer eligible b ased on patient's age to complete this topic Varicella Vaccines Aged Out No longer eligible based on patient's age to complete this topic Procedures Procedure Name Priority Date/Time Associated Diagnosis Comments HPV Routine 08/16/2023 HEPATITIS C SCREENING Routine 08/09/2023 from Last 3 Months or Most Recently Relevant to Health Maintenance Results * Cervical Cancer Screening: HPV (08/16/2023) Cervical Cancer Screening: HPV No interpreta tion,abstr acted Historical Provider MD HEALTH MAINTENANCE Final Result * Hepatitis C Screening (08/09/2023) Hepatitis C Screening Abstracted [facility] Provider MD HEALTH MAINTENANCE Final Result from Last 3 Months or Most Recently Relevant to Health Maintenance Insurance MEDICAID - [place] Advance Directives * Full Code - Confirmed (Latest Code Status on File) Date Activated Date Inactivated Comments 01/29/2024 2:09 AM 01/30/2024 5:44 PM This code status was ascertained in the following way: Code status discussion: discussion with patient To update the patient's code status, place a code status order. Do not modify or discontinue any currently active code status orders. * Full Code - Default Date Activated Date Inactivated Comments 01/29/2024 2:09 AM 01/29/2024 2:09 AM This is or romelia is used when code status has not been discussed with the patient, or code status is otherwise unknown/unconfirmed To update the patient's code status, place a code status order. Do not modify or discontinue any currently active code status orders. Care Teams Head Grinder Relationship Specialty Start Date End Date Braxton Pires [address] [place], [place] PCP - General 11/24/23
--- OUTSIDE RECORDS SUMMARY | 2024-10-22 18:52 | XMS_ITS | Encounter Summary ---
Author Organization [employer] Address [address] [place] [address] Care Team Providers Care Paranormal Investigator Name Role Phone Braxton Pires MD Primary Care Prov ider Reason for Visit * Reason Onset Date Comments Chart prep 10/19/2024 Encounter Details Date Type Department Care Team ([facility] Contact Info) Description 10/19/2024 Telephone [facility] [address] [place] [address] Braxton Pires MD [address] [place] [address] Chart prep Social History Tobacco Use Types Packs/Day Years [...] encounter Miscellaneous Notes * Telephone Encounter - Mary Elizabeth MA - 10/19/2024 1:17 PM EDT Chart Prep Labs: not done Images: not applicable Referrals: appointment pending Vaccines due: Hep B and HPV Screenings: STI screening and LMP Overdue care gaps: SBIRT, PHQ-9, Disability screen, and Tobacco documented in this encounter Plan of Treatment Upcoming Encounters Date Type Department Care Team (Late st Contact Info) Description 11/23/2024 2:30 PM EDT Clinical Support [facility] DIABETES/NUTRITION [address] [place] [address] [place] [address] documented as of this encounter Visit Diagnoses Not on filedocumented in this encounter Additional Health Concerns Assessment Noted Time PHQ-9 Depression Total Score: 0 08/23/19 24 1:46 PM EDT documented as of this encounter Care Teams Paranormal Investigator Relationship Specialty Start Date End Date Braxton Pires MD [address] [place] [address] PCP - General Internal Medicine 08/23/23 Jennie Otero Bell Person 11/18/23 documented as of this encounter
[2024-10-25 04:39] LABS: TS Negative Control Passed; TS Panel A 0; TS Panel B 0; TS Positive Control Passed; TSpotTB Negative (Negative)
== END 2024-10-22 13:35 | disposition home or self-care (01) ==
LOC: HO.CHCLDS 13:34
PROVIDERS: Visit Provider Internal Medicine
DX: Z11.1 Encounter for screening for respiratory tuberculosis (principal); R63.5 Abnormal weight gain
CPT/HCPCS: 36415; 80053; 83036; 84443; 86481